=== PATIENT | female | born 2005 | race Caucasian/White ===

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

== ENCOUNTER 2024-02-11 18:57 | Emergency (ER) | payer OTHER, SELFPAY ==
[2024-02-11 18:58] VITALS: BP 141/87; PULSE 80; RESP 18; TEMP 36.8; O2SAT 100; BMI 24.6
--- NOTE | 2024-02-11 19:25 | RAD_ITS ---
STUDY: X-RAY - RIGHT ELBOW REASON FOR EXAM: Female, 19 years old. Injury/Pain -- Multiple cat bites TECHNIQUE: 3 view(s) of the elbow. COMPARISON: None. FINDINGS: Normal visualized humerus, radius and ulna. Normal radiocapitellar and ulnotrochlear articulations. The soft tissue structures are unremarkable. RAD/Elbow min 3 Views IMPRESSION: Normal x-ray examination of the elbow. Electronically Signed: Ralf Ivan MD at 20:25 EST ,
--- NOTE | 2024-02-11 19:39 | EX.ED.GENINJ ---
HPI History of Present Illness Chief Complaint: Bite Detail of Chief Complaint: Multiple bites by kitten Informant: patient Onset/Context/Timing Onset: Today and Hours Mechanism/Context: other (Cat bite right elbow) Location of pain/injuries: Right elbow Quality of Pain: Dull and Aching Location: Right elbow with bruising that was not first noted. Current Severity: Mild Maximum Severity: Moderate Worsened by: Palpation and certain movement Relieved by: Rest Associated Symptoms Associated Symptoms: Negative for Parasthesias, Weakness, Loss of function, Inability to ambulate or Loss of consciousness Narrative Narrative: Patient is a 19-year-old female. She presents because of cat bites and scratch. This occurred approximately 1 to 2 hours prior to presentation. She was attempting to put the kitten in a carrier. Kitten did not want to go in the carrier and bit her several times. She has 3 puncture wounds near the insertion of the tricep tendon with ecchymosis and tenderness noted. There is also to puncture wounds noted proximal to the medial epicondyle and either a scratch or bite proximal right forearm. There is no drainage per patient. She denies paresthesia, anesthesia medics. She does report allergy to amoxicillin. Last tetanus shot was 2021 Tetanus Immunization: <5 years [facility] Medical History Anxiety Home Medications ?Medication ?Instructions ?Recorded ?Last Taken ?Type etonogestrel 0.12 mg-ethinyl See Rx Instructions .Route .COMPLEX 06/28/22 Unknown History estradiol 0.015 mg/24 hr vaginal ring fluoxetine 20 mg capsule 20 mg PO DAILY 06/28/22 Unknown History doxycycline monohydrate 100 mg 100 mg PO BID #10 CAPSULES 02/11/24 Unknown Rx capsule Allergy/AdvReac Type Severity Reaction Status Date / Time amoxicillin Allergy Rash Verified 02/11/24 18:58 Social History household members: family Smoking Status: Never smoker ROS ROS ED Constitutional Constitutional ED: Denies chills, fever(s) or subjective Musculoskeletal Musculoskeletal: Denies arthralgias or myalgias Integumentary Reports other Details: Scratch and bites due to cats Neurologic Neurologic: Denies paresthesias or weakness Hematologic/Lymphatic Hematologic/Lymphatic: Denies easy bleeding or easy bruising EXAM Physical Exam Const Vital Signs: 02/11/24 18:58 Temperature 98.2 F Temperature Source Oral Pulse Rate 80 Respiratory Rate 18 Blood Pressure 141/87 H Blood Pressure Mean 105 Pulse Ox 100 Oxygen Delivery Method Room Air Positive well nourished and well developed General Appearance ED: well developed and NAD HEENT atraumatic; Negative for tenderness Eyes PERRL and EOMs intact bilaterally Resp normal respiratory effort Cardio regular rhythm Rate: regular rate Extremity full ROM; Negative for normal to inspection Extremity Narrative: 3 puncture wounds near the insertion site of the tricep tendon. There are 2 puncture wounds noted proximal to the medial epicondyle. There is also scratch with possible puncture wound proximal medial right forearm. There is no erythema, warmth, induration, fluctuance or lymphangitis. There is no epitrochlear lymphadenopathy. There are bruises noted. She is tender over the tricep tendon. She has no pain ovation over the lateral or medial epicondyle. There is no pain ovation over the olecranon process. There is no pain with passive supination pronation. Radial pulses 2+. Neuro oriented x3, CN's II-XII intact bilaterally and moves all extremities Psych mental status grossly normal and thought process normal Skin no rashes or lesions noted, No no wounds, skin turgor normal and no jaundice Skin Narrative: Described under the extremity portion of the EMR MDM MDM MDM Narrative Medical decision making narrative: Because of patient's allergy to amoxicillin will treat with doxycycline. There is no history of or symptoms. X-ray was obtained to evaluate for retained foreign body i.e. fractured tooth. Radiography Chest X-Ray - ED: Read by ED Physician (Three-view x-ray of the right elbow was independently reviewed interpreted by me at 2002 as negative. There is no foreign body. There is no subcutaneous air or air noted in the joint.) Discharge Plan Triage Chief Complaint: Bite ED Provider: Jose Martin Mike Dx/Rx/DC Orders Clinical Impression: Cat bite of forearm, Cat bite of upper arm, Cat scratch of forearm Instructions: ED Cat Bite Prescriptions: New doxycycline monohydrate 100 mg capsule 100 mg PO BID Qty: 10 0RF No Action fluoxetine 20 mg capsule 20 mg PO DAILY Patient Comments: Take 1 capsule by mouth once daily. etonogestrel-ethinyl estradiol 0.12-0.015 mg/24 hr ring See Rx Instructions .ROUTE .COMPLEX Rx Instructions: 4 vag ring vaginally monthly Primary Care Provider: Jeremiah Del Valle Referrals: Jeremiah Del Valle DO [Primary Care Provider] - 2 Days Print Language: Citizen Of [place] Disposition Disposition: Home, Self Care
[2024-02-11] MEDS: Doxycycline 100 MG CAPSULE PO (20:15)
[2024-02-11 20:17] VITALS: BP 129/89; PULSE 68; RESP 16; TEMP 36.6; O2SAT 100
== END 2024-02-11 20:18 | disposition home or self-care (01) ==
PROVIDERS: Emergency Provider Emergency Medicine; PCP Student in an Organized Health Care Education/Training Program; Referring Provider Emergency Medicine; Visit Provider Emergency Medicine
DX: S51.051A Open bite, right elbow, initial encounter (principal); S02.5XXA Fracture of tooth (traumatic), initial encounter for closed fracture; W55.01XA Bitten by cat, initial encounter; F41.9 Anxiety disorder, unspecified
CPT/HCPCS: 73080; 99283